=== PATIENT | female | born 1995 | race Caucasian/White ===

== ENCOUNTER → 2017-04-01 | Outpatient (CLI) | payer BC, OTHER ==
--- NOTE | 2017-04-01 10:10 | DIAGNOSTIC IMAGING REPORT ---
L TIBIA/FIBULA 4 VIEWS CLINICAL HISTORY: Left welch pain COMPARISON: None. DISCUSSION: No fractures are visualized. There are no areas of suspicious periostitis. There are multiple growth arrest lines visualized. IMPRESSION: No fractures identified. Electronically signed by: Arnaldo Hagan M.D. 04/01/2017 10:09 AM Dictated Date/Time: 04/01/2017 10:07 AM
== END | disposition home or self-care (01) ==
LOC: C.RDSM 10:27
PROVIDERS: ATTEND Family Medicine
DX: M79.662 Pain in left lower leg (principal)

== ENCOUNTER → 2017-04-09 | Outpatient (CLI) | payer BC ==
--- NOTE | 2017-04-09 08:42 | DIAGNOSTIC IMAGING REPORT ---
MRI LEFT LOWER LEG WITHOUT INTRAVENOUS CONTRAST HISTORY: Left welch pain TECHNIQUE: Multiplanar multisequence MRI of the left lower leg was performed without the use of intravenous contrast. COMPARISON STUDY: Left tibia/fibula 04/01/2017 FINDINGS: There is a skin marker overlying the mid anterior lower leg. No periosteal, cortical, or marrow edema identified within the tibia or fibula. No fracture or dislocation. Soft tissues are unremarkable. IMPRESSION: No significant abnormality within the left lower leg. Electronically signed by: Isidro Ricardo M.D. 04/09/2017 8:41 AM Dictated Date/Time: 04/09/2017 8:30 AM
== END | disposition home or self-care (01) ==
LOC: C.MRI 07:28
PROVIDERS: ATTEND Family Medicine
DX: M79.662 Pain in left lower leg (principal)